=== PATIENT | male | born 1965 | race Caucasian/White ===

== ENCOUNTER 2017-11-09 18:28 | Inpatient (IN) | payer OTHER ==
[~2017-11-09] VITALS: Ht 165.1 cm; Wt 66.9 kg
[2017-11-09 18:45] VITALS: Ht 165.1 cm; Wt 66.9 kg
[2017-11-09 20:31] LABS: BASOPHIL % 0.3 % (0-2); PLATELET COUNT 279 x10^3mcL (130-400)
[2017-11-09 20:37] LABS: RED CELL DISTRIBUTION WIDTH 23.1 % (11.5-14.5)
[2017-11-09 20:47] LABS: rbc morphology (normal/abnorm) ABNORMAL (NORMAL)
[2017-11-09 21:04] LABS: CALCIUM 8.2 mg/dL (8.5-10.1); CARBON DIOXIDE 24.2 mmol/L (21-32); CHLORIDE SERUM 91 mmol/L (98-107); CREATININE SERUM 1.4 mg/dL (0.7-1.3); GFR1 57 mL/min; GLUCOSE SERUM 125 mg/dL (74-106); POTASSIUM SERUM 3.1 mmol/L (3.5-5.1); SODIUM SERUM 129 mmol/L (136-145)
[2017-11-09 21:09] LABS: ALKALINE PHOSPHATASE 80 U/L (46-116); ALT/SGPT 33 U/L (16-63); AST/SGOT 14 U/L (15-37); BILIRUBIN TOTAL 0.4 mg/dL (0.20-1.00)
[2017-11-09 21:28] LABS: ALBUMIN 2.5 g/dL (3.4-5.0); TOTAL PROTEIN, SERUM 5.5 g/dL (6.4-8.2)
[2017-11-09] MEDS ORDERED: REM15 PO (21:34)
[2017-11-09] MEDS ORDERED: NOR5 PO (21:35)
[2017-11-09] MEDS ORDERED: PRILOSEC OTC20 M1 PO (21:35)
[2017-11-09] MEDS ORDERED: TYLENOL PO (21:36)
[2017-11-09] MEDS ORDERED: TRAMADOL HCL50 MG PO (21:36)
[2017-11-09] MEDS ORDERED: MP PO (21:37)
[2017-11-09] MEDS ORDERED: MOM PO (21:37)
[2017-11-09] MEDS ORDERED: MULTI-VITAMINS1 TAB PO (21:38)
[2017-11-09] MEDS ORDERED: NATURE'S BLEND F1 MG PO (21:38)
[2017-11-09] MEDS ORDERED: THI100 PO (21:39)
[2017-11-09 22:17] LABS: MAGNESIUM 1.4 mg/dL (1.8-2.4); PHOSPHOROUS 2.9 mg/dL (2.5-4.9)
[2017-11-09 22:20] LABS: T3 TOTAL 0.73 ng/mL
[2017-11-09 22:23] VITALS: BP 108/69
[2017-11-09 22:25] LABS: FREE T4 1.36 ng/dL (0.76-1.46); FREE THYROXINE INDEX 3.4 ug/dL (1.4-4.5); T4(THYROXINE) 8.8 ug/dL (4.7-13.3)
[2017-11-09 22:33] LABS: CHOLESTEROL/HDL RATIO 2.7
[2017-11-10 01:54] LABS: RED BLOOD CELLS 3.57 M/mm3 (4.52-5.90)
[2017-11-10 02:12] LABS: TOTAL IRON BINDING CAPACITY 252 ug/dL (250-450)
[2017-11-10 02:28] LABS: IRON 3 ug/dL (65-170)
[2017-11-10 06:19] VITALS: BP 101/47
[2017-11-10 09:15] VITALS: BP 97/62
[2017-11-10 09:15] LABS: BASOPHIL % 0.2 % (0-2); PLATELET COUNT 272 x10^3mcL (130-400)
[2017-11-10 09:24] LABS: CALCIUM 7.5 mg/dL (8.5-10.1); CARBON DIOXIDE 21.8 mmol/L (21-32); CHLORIDE SERUM 103 mmol/L (98-107); CREATININE SERUM 0.9 mg/dL (0.7-1.3); GFR1 > 60 mL/min; GLUCOSE SERUM 104 mg/dL (74-106); SODIUM SERUM 137 mmol/L (136-145)
[2017-11-10 09:28] LABS: RED CELL DISTRIBUTION WIDTH 23.2 % (11.5-14.5)
[2017-11-10 10:56] LABS: rbc morphology (normal/abnorm) ABNORMAL (NORMAL)
[2017-11-10 13:11] LABS: RED BLOOD CELLS 3.36 M/mm3 (4.52-5.90)
[2017-11-10 13:24] LABS: UA SPECIFIC GRAVITY 1.025 (1.005-1.035); microscopic required? YES; urine erythrocyte NEGATIVE (NEGATIVE)
[2017-11-10 13:46] LABS: AMPHETAMINE QUAL UR NONE DETECTED (See below)
[2017-11-10 18:34] VITALS: BP 109/72
[2017-11-10 20:45] LABS: CALCIUM 7.3 mg/dL (8.5-10.1); CARBON DIOXIDE 21.8 mmol/L (21-32); CHLORIDE SERUM 103 mmol/L (98-107); CREATININE SERUM 0.8 mg/dL (0.7-1.3); GFR1 > 60 mL/min; GLUCOSE SERUM 113 mg/dL (74-106); POTASSIUM SERUM 3.6 mmol/L (3.5-5.1); SODIUM SERUM 135 mmol/L (136-145)
[2017-11-10 21:19] VITALS: BP 92/65
[2017-11-11 05:56] VITALS: BP 130/85
[2017-11-11 08:26] VITALS: BP 123/87
[2017-11-11 13:25] LABS: TOTAL PROTEIN CSF 151.7 mg/dL (15-45)
[2017-11-11 13:42] LABS: APPEARANCE CSF CLEAR; COLOR CSF COLORLESS
[2017-11-11 13:43] LABS: RBC CSF 470 /cumm (0); VOLUME CSF 6.5 mL; WBC CSF 2 /cumm (0-5)
[2017-11-11 17:32] VITALS: BP 104/73
[2017-11-11 19:45] VITALS: BP 98/57
[2017-11-12 05:39] VITALS: BP 108/70
[2017-11-12 10:00] VITALS: BP 131/82
[2017-11-12 17:28] VITALS: BP 128/74
[2017-11-12 19:57] VITALS: BP 112/74
[2017-11-13 05:27] VITALS: BP 134/85
[2017-11-13 08:20] VITALS: BP 127/97
[2017-11-13 09:14] LABS: BASOPHIL % 0.9 % (0-2)
[2017-11-13 09:18] LABS: PLATELET COUNT 453 x10^3mcL (130-400); RED CELL DISTRIBUTION WIDTH 22.4 % (11.5-14.5)
[2017-11-13 09:21] LABS: CALCIUM 8.1 mg/dL (8.5-10.1); CARBON DIOXIDE 26.8 mmol/L (21-32); CHLORIDE SERUM 105 mmol/L (98-107); CREATININE SERUM 0.6 mg/dL (0.7-1.3); GFR1 > 60 mL/min; GLUCOSE SERUM 91 mg/dL (74-106); MAGNESIUM 1.4 mg/dL (1.8-2.4); POTASSIUM SERUM 3.2 mmol/L (3.5-5.1); SODIUM SERUM 142 mmol/L (136-145)
[2017-11-13] MEDS ORDERED: LEXAPRO10 MG PO (09:45)
[2017-11-13] MEDS ORDERED: MP PO (09:45)
[2017-11-13] MEDS ORDERED: LIB25 PO (09:45)
[2017-11-13 09:46] VITALS: BP 127/97
== END 2017-11-13 14:55 | DRG 56 ==
LOC: ED 18:28 → MU 20:51
PROVIDERS: Emergency Medicine; Family Medicine; Internal Medicine
PROC: 009U3ZX Drainage of Spinal Canal, Percutaneous Approach, Diagnostic (ICD-10-PCS; principal; 2017-11-11)
PROC: B01BZZZ Fluoroscopy of Spinal Cord (ICD-10-PCS; 2017-11-11)
DX: G91.2 (Idiopathic) normal pressure hydrocephalus (principal); N17.0 Acute kidney failure with tubular necrosis; E43 Unspecified severe protein-calorie malnutrition; R65.10 Systemic inflammatory response syndrome (SIRS) of non-infectious origin without acute organ dysfunction; R45.851 Suicidal ideations; E87.1 Hypo-osmolality and hyponatremia; F10.239 Alcohol dependence with withdrawal, unspecified; G93.89 Other specified disorders of brain; K52.9 Noninfective gastroenteritis and colitis, unspecified; E86.0 Dehydration; E87.6 Hypokalemia; E83.42 Hypomagnesemia; N18.3 Chronic kidney disease, stage 3 (moderate); D64.9 Anemia, unspecified; F32.9 Major depressive disorder, single episode, unspecified; Y90.0 Blood alcohol level of less than 20 mg/100 ml; Z68.25 Body mass index [BMI] 25.0-25.9, adult; Z87.891 Personal history of nicotine dependence; Z53.29 Procedure and treatment not carried out because of patient's decision for other reasons
CPT/HCPCS: 62272; 83880; 84439; 97110-GP; 97116-GP; 97530-GP; G0480; J0696; J2270; J3475; J3480; J3490; J7030; J7040; Q0092